=== PATIENT | female | born 1940 | race Caucasian/White ===

== ENCOUNTER 2016-10-31 22:43 | Inpatient (IN) | payer MEDICARE, BC ==
[~2016-10-31] VITALS: Ht 157.5 cm; Wt 73.5 kg
[~2016-10-31 22:43] MED LIST: CHOLESTEROL MED; FENO145T32 PO; HYDR-3237 PO; PANT40TA5 PO; WILL BRING LIST; [UNRECOGNIZED DRUG - REMARK]
[2016-10-31] MEDS ORDERED: ONDANSETRON 2MG/ML, 2ML IVPush ONE (23:00)
[2016-10-31] MEDS ORDERED: SODIUM CHLORIDE 0.9% 1,000ML IVBOLUS ONE (23:00)
[2016-10-31] MEDS ORDERED: SODIUM CHLORIDE FLUSH 10ML SYR IVF ONE (23:00)
[2016-10-31] MEDS ORDERED: MORPHINE SULFATE 4 MG/ML, 1ML IVPush PRN (23:00)
[2016-10-31 23:08] LABS: HEMATOCRIT 39.3 % (34.6-47.8); HEMOGLOBIN 13.3 g/dL (11.7-16.4); WHITE BLOOD COUNT 9.4 x10^3/uL (3.4-10)
[2016-10-31] MEDS ORDERED: FLUO10CA13 PO (23:12)
[2016-10-31] MEDS ORDERED: MORPHINE SULFATE 4 MG/ML, 1ML ONE (23:15)
[2016-10-31] MEDS ORDERED: ONDANSETRON 2MG/ML, 2ML ONE (23:15)
[2016-10-31 23:17] LABS: ASPARTATE AMINO TRANSFERASE 277 U/L (15-37); BLOOD UREA NITROGEN 22 mg/dL (7-18)
[2016-10-31 23:24] LABS: IS PT STATUS REG ER OR PRE ER? YES
[2016-10-31] MEDS ORDERED: OMNIPAQUE 350 MG/ML, 100ML BOTTLE ONE (23:46)
[2016-11-01] MEDS ORDERED: CEFOTETAN PMX 1GM/50ML 50 ML IV ONE (00:30)
[2016-11-01] MEDS ORDERED: LABETALOL 5MG/ML, 20ML IVPush PRN (02:00)
[2016-11-01] MEDS ORDERED: TEMAZEPAM 15 MG CAPSULE PO PRN (02:00)
[2016-11-01] MEDS ORDERED: morphine SULFATE 10 MG/ML, 1ML IVPush PRN ×3 (02:00→19:30)
[2016-11-01] MEDS ORDERED: ONDANSETRON 2MG/ML, 2ML IVPush PRN (02:00)
[2016-11-01] MEDS: D5%-0.45% NACL 1,000 ML IV SCH ×2 (02:19→09:56)
[2016-11-01 02:22] VITALS: BP 114/69
[2016-11-01 07:38] VITALS: BP 128/66
[2016-11-01] MEDS: FLUOXETINE 10 MG CAP PO SCH (08:56)
[2016-11-01] MEDS: PANTOPROZOLE 40MG TABLET PO SCH (08:56)
[2016-11-01] MEDS ORDERED: CEFOTETAN PMX 2GM/50ML 50 ML IV SCH (12:00)
[2016-11-01 13:25] VITALS: BP 135/66
[2016-11-01] MEDS ORDERED: FENTANYL PF 100 MCG/2ML ONE ×2 (14:39)
[2016-11-01] MEDS ORDERED: DEXAMETHASONE 4 MG/ML, 1ML ONE (15:37)
[2016-11-01] MEDS ORDERED: ONDANSETRON 2MG/ML, 2ML ONE (15:37)
[2016-11-01] MEDS ORDERED: SUCCINYLCHOLINE 20 MG/ML, 10ML ONE (15:37)
[2016-11-01] MEDS ORDERED: PROPOFOL 10 MG/ML, 20ML ONE (15:37)
[2016-11-01] MEDS ORDERED: EPINEPHRINE 1 MG/ML, 1ML ONE (15:51)
[2016-11-01] MEDS ORDERED: BUPIVACAINE/PF 0.5% ONE (15:51)
[2016-11-01] MEDS ORDERED: METOPROLOL 1 MG/ML, 5ML IV PRN (16:00)
[2016-11-01] MEDS ORDERED: PROMETHAZINE 25 MG/ML, 1ML IV PRN (16:00)
[2016-11-01] MEDS ORDERED: FENTANYL PF 100 MCG/2ML IV PRN (16:00)
[2016-11-01] MEDS ORDERED: ACETAMINOPHEN 325 MG TABLET PO PRN (16:00)
[2016-11-01] MEDS ORDERED: MEPERIDINE/PF 25MG/0.5ML IVPush PRN (16:00)
[2016-11-01] MEDS ORDERED: OXYcodone 5 MG/5 ML ORAL.SOL UDC PO PRN (16:00)
[2016-11-01] MEDS ORDERED: hydrALAzine 20 MG/ML, 1ML IV PRN (16:00)
[2016-11-01] MEDS ORDERED: ALBUTEROL SULFATE 2.5 MG/3 ML NPPB PRN (16:00)
[2016-11-01] MEDS ORDERED: HYDROmorphone 1 MG/ML, 1ML IV PRN (16:00)
[2016-11-01] MEDS ORDERED: BUPIVACAINE/PF-EPI 0.5% 1:200K INFIL ONE (16:02)
[2016-11-01] MEDS ORDERED: OXYcodone 5 MG/5 ML ORAL.SOL UDC ONE (16:43)
[2016-11-01] MEDS ORDERED: ACETAMINOPHEN 650 MG/20.3 ML UDC ONE (16:44)
[2016-11-01] MEDS ORDERED: ACETAMINOPHEN 325 MG TABLET ONE (16:44)
[2016-11-01] MEDS ORDERED: PROMETHAZINE 25 MG/ML, 1ML ONE (17:13)
[2016-11-01] MEDS ORDERED: KETOROLAC 30 MG/1 ML IV PRN (19:30)
[2016-11-01] MEDS ORDERED: OXYcodone/APAP 5/325MG TABLET PO PRN (19:30)
[2016-11-01 20:49] VITALS: BP 126/71
[2016-11-02 00:11] VITALS: BP 118/72
[2016-11-02] MEDS: D5%-0.45% NACL 1,000 ML IV SCH ×2 (01:03→08:34)
[2016-11-02 03:32] VITALS: BP 134/76
[2016-11-02 06:10] LABS: HEMATOCRIT 35.6 % (34.6-47.8); WHITE BLOOD COUNT 8.1 x10^3/uL (3.4-10)
[2016-11-02 06:15] LABS: ASPARTATE AMINO TRANSFERASE 615 U/L (15-37); BLOOD UREA NITROGEN 7 mg/dL (7-18)
[2016-11-02] MEDS: FLUOXETINE 10 MG CAP PO SCH (08:33)
[2016-11-02] MEDS: PANTOPROZOLE 40MG TABLET PO SCH (08:33)
[2016-11-02 09:14] VITALS: BP 136/77
[2016-11-02] MEDS ORDERED: POTASSIUM PHOSPHATE 22 MEQ in SODIUM CHLORIDE 0.9% 500 ML IV ONE (10:30)
[2016-11-02] MEDS ORDERED: IBUP-1222 PO (14:03)
[2016-11-02] MEDS ORDERED: OXYC-306 PO (14:04)
[2016-11-02 14:21] VITALS: BP 138/78
== END 2016-11-02 14:15 | disposition home or self-care (01) | DRG 417 ==
LOC: ED 22:47 → EDIP 11-01 00:49 → 4NOR 11-01 01:28
PROVIDERS: ADMIT Internal Medicine; ATTEND Internal Medicine
PROC: 0FT44ZZ Resection of Gallbladder, Percutaneous Endoscopic Approach (ICD-10-PCS; principal; 2016-11-01 15:30)
DX: K80.00 Calculus of gallbladder with acute cholecystitis without obstruction (principal); K85.10 Biliary acute pancreatitis without necrosis or infection; N17.0 Acute kidney failure with tubular necrosis; E44.1 Mild protein-calorie malnutrition; Z68.29 Body mass index [BMI] 29.0-29.9, adult; K59.00 Constipation, unspecified; E78.5 Hyperlipidemia, unspecified; F32.9 Major depressive disorder, single episode, unspecified; K21.9 Gastro-esophageal reflux disease without esophagitis; Z85.528 Personal history of other malignant neoplasm of kidney; Z87.891 Personal history of nicotine dependence; Z90.5 Acquired absence of kidney; Z90.49 Acquired absence of other specified parts of digestive tract
CPT/HCPCS: 36415; 71275; 80053; 80061; 83690; 83735; 83880; 84100; 84484; 85025; 85610; 85730; 88304; 93005; 96361; 96365; 96375; J0171; J1100; J1885; J2405; J2550; J2704; J3010; J3490; Q9967; J0330; J7030; J7040; S0074

== ENCOUNTER 2020-08-29 11:31 | Day surgery (SDC) | payer MEDICARE, BC ==
[~2020-08-29] VITALS: Ht 157.5 cm; Wt 65.0 kg
[~2020-08-29 11:31] MED LIST changes: +FLUO10CA13 PO; +IBUP-1222 PO; +OXYC1TAB17 PO; -PANT40TA5 PO; +PANT40TA6 PO
[2020-08-29 12:30] VITALS: BP 127/80
[2020-08-29] MEDS ORDERED: CHLORHEXIDINE 15 ML UDC PO ONE (12:30)
[2020-08-29] MEDS ORDERED: LACTATED RINGERS 1,000 ML IV SCH (12:30)
[2020-08-29] MEDS ORDERED: FENO145T32 PO (12:58)
[2020-08-29] MEDS ORDERED: PANT40TA3 PO (12:58)
[2020-08-29 13:14] LABS: BASOPHILS % (AUTO) 1 % (0-1); EOSINOPHILS % (AUTO) 1 % (1-7); LYMPHOCYTES % (AUTO) 35 % (22-44); MEAN CORPUSCULAR HEMOGLOBIN 30.6 pg (27.0-34.8); MEAN CORPUSCULAR HGB CONC 34.1 g/dL (32.4-35.8); MEAN PLATELET VOLUME 8.5 fL (7.4-10.4); MONOCYTES % (AUTO) 9 % (2-9); NEUTROPHILS % (AUTO) 55 % (42-75); PLATELET COUNT 267 x10^3/uL (130-400); RED BLOOD COUNT 4.49 x10^6/uL (3.82-5.3); RED CELL DISTRIBUTION WIDTH 13.8 % (9.6-15.2)
[2020-08-29 13:15] LABS: HCT (SEDRATE) 40.5 % (34.6-47.8)
[2020-08-29 13:20] LABS: ANION GAP 5 mmol/L (5-15); CALCIUM 9.2 mg/dL (8.5-10.1); CHLORIDE 111 mmol/L (98-107)
[2020-08-29 13:23] LABS: INTERNATIONAL NORMALIZED RATIO 1.02 (0.93-1.1); PROTHROMBIN TIME 10.9 Seconds (9.6-11.5)
[2020-08-29] MEDS ORDERED: VANCOMYCIN 1,000 MG in SODIUM CHLORIDE 0.9% 100 ML IV ONE (13:30)
[2020-08-29] MEDS ORDERED: VANCOMYCIN PMX 1GM/200ML 200 ML IV ONE (13:30)
[2020-08-29] MEDS ORDERED: EPINEPHRINE 1 MG/ML, 1ML ONE (16:10)
[2020-08-29] MEDS ORDERED: BUPIVACAINE/PF 0.5% ONE ×2 (16:10→16:56)
[2020-08-29] MEDS ORDERED: PROPOFOL 10 MG/ML, 20ML ONE (16:12)
[2020-08-29] MEDS ORDERED: FENTANYL PF 100 MCG/2ML ONE (16:12)
[2020-08-29] MEDS ORDERED: ROCURONIUM 10 MG/ML,10ML ONE (16:27)
[2020-08-29] MEDS ORDERED: SUCCINYLCHOLINE 20 MG/ML, 10ML ONE (16:27)
[2020-08-29] MEDS ORDERED: DEXAMETHASONE 4 MG/ML, 1ML ONE (16:27)
[2020-08-29] MEDS ORDERED: ONDANSETRON 2MG/ML, 2ML ONE (16:27)
[2020-08-29] MEDS ORDERED: CEFAZOLIN 1,000 MG ONE (16:27)
[2020-08-29] MEDS ORDERED: HYDROcodone/APAP 10/325 MG TABLET PO PRN (16:30)
[2020-08-29] MEDS ORDERED: morphine SULFATE 10 MG/ML, 1ML IVPush PRN (16:30)
[2020-08-29] MEDS ORDERED: HYDROcodone/APAP 5/325 TABLET PO PRN (16:30)
[2020-08-29] MEDS ORDERED: LABETALOL 5MG/ML, 20ML IVPush SCH (16:30)
[2020-08-29] MEDS ORDERED: PROMETHAZINE 25 MG/ML, 1ML IM PRN (16:30)
[2020-08-29] MEDS ORDERED: ACETAMINOPHEN 325 MG TABLET PO PRN ×2 (16:30→17:30)
[2020-08-29] MEDS ORDERED: KETOROLAC 30 MG/1 ML IVPush SCH (16:30)
[2020-08-29] MEDS ORDERED: BUPIVACAINE/PF-EPI 0.5% 1:200K IM ONE (17:04)
[2020-08-29] MEDS ORDERED: PROMETHAZINE 12.5 MG SUPP PR PRN (17:30)
[2020-08-29] MEDS ORDERED: LORazepam 2 MG/ML, 1ML IVPush PRN (17:30)
[2020-08-29] MEDS ORDERED: hydrALAzine 20 MG/ML, 1ML IV PRN (17:30)
[2020-08-29] MEDS ORDERED: ALBUTEROL SULFATE 2.5 MG/3 ML NPPB PRN (17:30)
[2020-08-29] MEDS ORDERED: MEPERIDINE/PF 25MG/0.5ML IVPush PRN (17:30)
[2020-08-29] MEDS ORDERED: PROMETHAZINE 25 MG/ML, 1ML IVPush PRN (17:30)
[2020-08-29] MEDS ORDERED: MIDAZOLAM 1 MG/ML, 2ML IV PRN (17:30)
[2020-08-29] MEDS ORDERED: HYDROmorphone 1 MG/ML, 1ML INJ IVPush PRN (17:30)
[2020-08-29] MEDS ORDERED: DIPHENHYDRAMINE 50 MG/ML, 1ML IVPush PRN ×2 (17:30)
[2020-08-29] MEDS ORDERED: DIAZEPAM 5 MG/ML, 2ML IVPush PRN (17:30)
[2020-08-29] MEDS ORDERED: LABETALOL 5MG/ML, 20ML IV PRN (17:30)
[2020-08-29] MEDS ORDERED: OXYcodone 5 MG/5 ML ORAL.SOL UDC PO PRN (17:30)
[2020-08-29] MEDS ORDERED: ONDANSETRON 2MG/ML, 2ML IVPush PRN (17:30)
[2020-08-29] MEDS ORDERED: FENTANYL PF 100 MCG/2ML IV PRN (17:30)
[2020-08-29] MEDS ORDERED: EPHEDRINE 50 MG/ML, 1ML IVPush PRN (17:30)
[2020-08-29] MEDS ORDERED: MEPERIDINE/PF 25MG/ML,1ML ONE (18:22)
== END 2020-08-29 19:15 | disposition home or self-care (01) ==
LOC: OUT 11:31
PROVIDERS: ATTEND Orthopaedic Surgery Orthopaedic Surgery of the Spine
DX: M80.88XA Other osteoporosis with current pathological fracture, vertebra(e), initial encounter for fracture (principal); E78.5 Hyperlipidemia, unspecified; K21.9 Gastro-esophageal reflux disease without esophagitis; D64.9 Anemia, unspecified; Z20.822 Contact with and (suspected) exposure to COVID-19; Z79.01 Long term (current) use of anticoagulants; Z79.899 Other long term (current) drug therapy
CPT/HCPCS: 22513; 36415; 71046; 72072; 80048; 83036; 85025; 85610; 85651; 85730; 87635; 88304; 88311; 88341; 88342; 93005; C1713; J0171; J0330; J0690; J1100; J2175; J2405; J2704; J3010; J7120; 76000